=== PATIENT | male | born 1960 | race Caucasian/White ===

== ENCOUNTER 2016-08-18 08:09 | Day surgery (SDC) | payer OTHER ==
[2016-08-17 16:24] VITALS: BMI 34.7
[2016-08-18] MEDS ORDERED: ROCURONIUM BROMIDE 50 MG/5 ML VIAL ONE (10:47)
[2016-08-18] MEDS ORDERED: MIDAZOLAM HCL 2 MG/2 ML SINGLE DOSE VIAL ONE (10:47)
--- NOTE | 2016-08-18 11:09 | HP ---
History & Physical Update - History History: No Change - Physical Physical: No Change - Assessment Assessment: No Change - Plan Plan: No Change
[2016-08-18] MEDS ORDERED: BUPIVACAINE HCL/PF 0.5% (5MG/ML) 10 ML VIAL ONE (11:43)
[2016-08-18] MEDS ORDERED: KETOROLAC TROMETHAMINE 30 MG/1 ML VIAL ONE (11:48)
[2016-08-18] MEDS ORDERED: ceFAZolin SODIUM 1 GM VIAL ONE (11:48)
[2016-08-18] MEDS ORDERED: DEXAMETHASONE SOD PHOSPHATE 4 MG/1 ML VIAL ONE (11:48)
[2016-08-18] MEDS ORDERED: ceFAZolin SODIUM 1 GM VIAL IVPB ONE (12:27)
[2016-08-18] MEDS ORDERED: DESFLURANE GAS 240 ML BOTTLE IH ONE (12:36)
[2016-08-18] MEDS ORDERED: BUPIVACAINE HCL/PF 0.5% (5MG/ML) 10 ML VIAL IJ ONE (12:54)
--- NOTE | 2016-08-18 14:26 | OP ---
Operative Note - Note: Operative Date: 08/18/16 Pre-Operative Diagnosis: right inguinal hernia Operation: Robotic-assisted laparoscopic right inguinal hernia repair with mesh Post-Operative Diagnosis: Same as Pre-op Surgeon: Yony Shane Editor In Chief [employer]: Monica Pate Anesthesia: General Estimated Blood Loss (mls): 15 Fluid Volume Replaced (mls): 600 Operative Report Dictated: Yes
--- NOTE | 2016-08-18 14:27 | SURG ---
Surgery Licensing Court Magistrate Note Licensing Court Magistrate: Monica Pate PA-C Date of Service: 08/18/16 Diagnosis: right inguinal hernia Procedure: Robotic-assisted laparoscopic right inguinal hernia repair with mesh I was present for the entirety of the operative procedure. For further detail, please refer to operative report. Visit type - Case Type Case Type: Scheduled Admission - Emergency Emergency Visit: No - New patient This patient is new to me today: Yes Date on this admission: 08/18/16 - Critical Care Critical Care patient: No
[2016-08-18] MEDS ORDERED: oxyCODONE HCL 5 MG TABLET PO PRN ×2 (14:39)
[2016-08-18] MEDS ORDERED: ONDANSETRON 4 MG/2 ML VIAL IVPUSH PRN (14:39)
[2016-08-18] MEDS ORDERED: LACTATED RINGERS SOLUTION 1,000 ML IV SCH (14:45)
[2016-08-18 15:46] VITALS: TEMP 98.3
[2016-08-18 17:53] VITALS: BP 123/76; PULSE 76
--- NOTE | 2016-08-19 07:12 | OP ---
DATE OF OPERATION: 08/18/2016 PROCEDURE: Robotic-assisted laparoscopic right inguinal hernia repair with mesh. PREOPERATIVE DIAGNOSIS: Right inguinal hernia. POSTOPERATIVE DIAGNOSIS: Right inguinal hernia. SURGEON: Yony Shane MD ANESTHESIA: General endotracheal. SUPERVISOR [employer]: JENNIFER Justice FINDINGS AND PROCEDURE: This is a 56-year-old male who presents with a small right inguinal scrotal hernia associated with pain on exertion and on examination the hernia was noted to be reducible, so patient was advised elective repair of the hernia and consent was obtained after discussing the risks, benefits, and alternatives to the procedure. Patient was brought to the operating room and placed in the supine position. General endotracheal anesthesia was administered. A Spencer catheter was inserted and the abdomen was prepped and draped in the usual sterile fashion. Using 0.5% Marcaine, local anesthesia was administered to the proposed incision site. The peritoneal cavity was entered using the Veress needle technique via an 8-mm incision at the supraumbilical region to the right of the midline. Pneumoperitoneum was established. An 8-mm port was inserted followed by insertion of the 3D 0-degree laparoscope. Peritoneal cavity was carefully inspected and was noted to be free of inadvertent injury. The patient was then placed in the Trendelenburg position. Two 8-mm ports were inserted up to 7 mm away from each other, 1 to the right and 1 to the left of the midline port. The target organ was then set and the robotic arms were docked. The fenestrated bipolar forceps was inserted through the left-sided port and the nupur connected to a monopolar cautery was inserted in the right-sided port. The undersigned scrubbed out and commenced the console part of the procedure. A large indirect hernia defect was noted and the left side was noted to be normal. The parietal peritoneum was scored at the level of the anterior-superior iliac spine and towards the medial umbilical ligament. Preperitoneal pocket was then created using combined sharp dissection with the nupur and blunt dissection with the bipolar forceps. Using the inferior epigastric artery as the landmark, the dissection was carried medially towards the underside of the symphysis pubis and laterally towards the anterior-superior iliac spine. The large hernia sac was then carefully dissected away from the spermatic cord structures and was transected as far distal as possible and the peritoneal reflection also was then mobilized superiorly as far as possible, at least about 7 cm away from the internal ring. A lipoma of the cord was also excised from the spermatic cord and placed in the peritoneal cavity. After this was completed, the attenuated internal ring was apposed using V-Loc 2-0 nonabsorbable sutures to tighten the ring. The 10 x 15-cm ProGrip mesh was then deployed, covering the hernia defect as well as the Hesselbach triangle, the femoral canal, and the inguinal floor medial to the inferior epigastric vessels. After the deployment was deemed satisfactory, the parietal peritoneum was then closed with running V-Loc 2-0 absorbable sutures. The defect of the transected hernia sac was also closed using figure-of-8 V-Loc 2-0 absorbable sutures. The peritoneal cavity was then again carefully inspected and was noted to be free of inadvertent injury. The robotic arms were undocked. The instruments were removed and the pneumoperitoneum was evacuated. The ports were removed and the wounds were closed with subcuticular Biosyn 4-0 sutures reinforced with Dermabond. The Spencer catheter was removed and the patient was successfully extubated. The patient was transferred to the postanesthesia care unit in satisfactory condition. Estimated blood loss was about 5 mL. Wound class: Clean. The patient received 1 g of Ancef prior to the start of this procedure. Herbert [id number]
== END 2016-08-18 16:35 | disposition home or self-care (01) ==
LOC: JASU-SURG 08:09
PROVIDERS: ATTEND Surgery
PROC: 8E0W4CZ Robotic Assisted Procedure of Trunk Region, Percutaneous Endoscopic Approach (ICD-10-PCS; 2016-08-18)
PROC: 0YU54JZ Supplement Right Inguinal Region with Synthetic Substitute, Percutaneous Endoscopic Approach (ICD-10-PCS; principal; 2016-08-18 10:00)
DX: K40.90 Unilateral inguinal hernia, without obstruction or gangrene, not specified as recurrent (principal)
CPT/HCPCS: 49650; S2900; 94760